=== PATIENT | male | born 1935 | race Caucasian/White ===

== ENCOUNTER 2016-10-04 06:46 | Day surgery (SDC) | payer MEDICARE, OTHER ==
[~2016-10-04] VITALS: Ht 166.4 cm; Wt 74.1 kg
[2016-10-04] MEDS ORDERED: TETRACAINE HCL/PF 0.5% 4 ML OPHTHALMIC SOLUTION ONE (06:56)
[2016-10-04] MEDS ORDERED: CYCLOPENTOLATE HCL 2% 2 ML OPHTHALMIC SOLUTION ONE (06:56)
[2016-10-04] MEDS ORDERED: DICLOFENAC SODIUM 0.1% 2.5 ML OPHTHALMIC SOLUTION ONE (06:56)
[2016-10-04] MEDS ORDERED: PHENYLEPHRINE HCL 2.5% 2 ML OPHTHALMIC SOLUTION ONE (06:57)
[2016-10-04] MEDS ORDERED: MOXIFLOXACIN HCL 0.5% 3 ML OPHTHALMIC SOLUTION ONE (06:57)
[2016-10-04] MEDS ORDERED: SODIUM CHLORIDE 0.9% 500 ML IV ONE ×2 (07:01→08:10)
[2016-10-04] MEDS ORDERED: RINGERS SOLUTION,LACTATED 500 ML IV ONE (07:30)
[2016-10-04] MEDS ORDERED: RINGERS SOLUTION,LACTATED 0 ML IV ONE (07:54)
[2016-10-04] MEDS ORDERED: ASPI81 PO (08:03)
[2016-10-04] MEDS ORDERED: INSNOV SQ (08:03)
[2016-10-04] MEDS ORDERED: SITA25 PO (08:03)
[2016-10-04] MEDS ORDERED: CARV3 PO (08:03)
[2016-10-04] MEDS ORDERED: AMLO-512 PO (08:03)
[2016-10-04] MEDS ORDERED: TETRACAINE HCL/PF 0.5% 4 ML OPHTHALMIC SOLUTION OS ONE (08:15)
[2016-10-04] MEDS ORDERED: ACETAMINOPHEN/CODEINE 300-30 MG TABLET PO PRN (08:15)
[2016-10-04] MEDS ORDERED: AcetaZOLAMIDE 250 MG TABLET PO ONE (08:15)
[2016-10-04] MEDS: CYCLOPENTOLATE HCL 2% 2 ML OPHTHALMIC SOLUTION OS SCH ×3 (08:17→08:28)
[2016-10-04] MEDS: MOXIFLOXACIN HCL 0.5% 3 ML OPHTHALMIC SOLUTION OS SCH ×3 (08:17→08:38)
[2016-10-04] MEDS: DICLOFENAC SODIUM 0.1% 2.5 ML OPHTHALMIC SOLUTION OS SCH ×3 (08:17→08:38)
[2016-10-04] MEDS: PHENYLEPHRINE HCL 2.5% 2 ML OPHTHALMIC SOLUTION OS SCH ×3 (08:18→08:28)
[2016-10-04 08:23] LABS: GLUCOSE COMMENT 1 Doctor Notified; GLUCOSE,POINT OF CARE 80 MG/DL (70-110)
[2016-10-04] MEDS ORDERED: AcetaZOLAMIDE 250 MG TABLET ONE (09:33)
[2016-10-04] MEDS ORDERED: MOXIFLOXACIN HCL 0.5% 3 ML OPHTHALMIC SOLUTION OU ONE (10:00)
[2016-10-04] MEDS ORDERED: TETRACAINE HCL VISCOUS 0.5% 5 ML OPHTHALMIC SOLUTION OU ONE (10:00)
[2016-10-04] MEDS ORDERED: TETRACAINE HCL/PF 0.5% 4 ML OPHTHALMIC SOLUTION OU ONE (10:00)
[2016-10-04] MEDS ORDERED: LIDOCAINE HCL/PF 1% 2 ML VIAL IM ONE (10:00)
[2016-10-04] MEDS ORDERED: HYALURONATE SODIUM 12 MG/ML 0.8 ML SYRINGE IO ONE (10:00)
[2016-10-04] MEDS ORDERED: EPINEPHrine 1:1,000 [1 MG/ML] AMP IM ONE (10:00)
[2016-10-04] MEDS ORDERED: BRIMONIDINE TARTRATE 0.15% 5 ML OPHTHALMIC SOLUTION OU ONE (10:00)
[2016-10-04] MEDS ORDERED: POVIDONE-IODINE 10% 15 ML SOLUTION UD TP ONE (10:00)
[2016-10-04] MEDS ORDERED: HYALURONATE SOD/CHONDROITIN SOD 0.5 ML VIAL IO ONE (10:00)
[2016-10-04] MEDS ORDERED: MIDAZOLAM HCL 2 MG/2 ML VIAL IVP ONE (12:00)
[2016-10-04] MEDS ORDERED: FentaNYL CITRATE-PF 100 MCG/2 ML VIAL IVP ONE (12:00)
== END 2016-10-04 10:20 | disposition home or self-care (01) ==
LOC: SURGERY 06:46
PROVIDERS: ATTEND Ophthalmology
DX: E11.36 Type 2 diabetes mellitus with diabetic cataract (principal); H25.12 Age-related nuclear cataract, left eye; E11.22 Type 2 diabetes mellitus with diabetic chronic kidney disease; I13.11 Hypertensive heart and chronic kidney disease without heart failure, with stage 5 chronic kidney disease, or end stage renal disease; N18.6 End stage renal disease; I25.10 Atherosclerotic heart disease of native coronary artery without angina pectoris; Z98.890 Other specified postprocedural states; Z79.4 Long term (current) use of insulin; Z87.891 Personal history of nicotine dependence
CPT/HCPCS: 66984; 82962; 93005; C1780; J0171; J2250; J3010; J3490 ×2; J7040; J7120